=== PATIENT | female | born 1960 | race Caucasian/White ===

== ENCOUNTER 2025-02-03 19:37 | Emergency (ER) | payer MEDICARE, OTHER, SELFPAY ==
[2025-02-03 19:38] VITALS: BP 134/88; PULSE 90; RESP 18; TEMP 36.5; O2SAT 98
--- NOTE | 2025-02-03 19:45 | DI.CT_ITS ---
Exam(s) CT HEAD WO EXAM: CT HEAD WO CLINICAL HISTORY: headache, pain behind eye since head injury in Apr. TECHNIQUE: Imaging Protocol: Axial computed tomography images with coronal and sagittal reformatted images were created and reviewed COMPARISON: No exams were available for comparison FINDINGS: Ventricles and Extra axial spaces: Normal in size and morphology for the patient's age. Hemorrhage: None. Cerebral parenchyma: No evidence of acute infarct or mass. Midline shift: None. Brainstem/Cerebellum: Normal. Calvarium: Normal. Visualized Paranasal sinuses:Clear. Mastoids: Clear. Soft Tissues: Unremarkable. ORBITS: Unremarkable. PITUITARY: Not enlarged. IMPRESSION: No acute intracranial process. The preliminary [facility] report was reviewed. RADIATION DOSE DELIVERED: 801.03mGy.cm Total DLP DATA REPOSITORY: All CT scans at this facility are submitted to the National Radiology Data Registry (NRDR) Dose Index Registry (DIR) with the [employer] ([employer]). RADIATION OPTIMIZATION: All CT scans at this facility use at least one of these dose optimization techniques: automated exposure control; mA and/or kV adjustment per patient size (includes targeted exams where dose is matched to clinical indication); or iterative reconstruction.
--- NOTE | 2025-02-03 20:01 | W.ED.GENAD ---
Discharge Plan Disposition Patient Disposition: Home Condition: Stable Discharge Details Clinical Impression: Headache, Change in vision Primary Care Provider: Unknown,Unknown ED Provider: Talisha Howard Home Meds and New Rx's Prescriptions: No Action gabapentin 300 mg capsule 300 mg PO QHS trazodone 50 mg tablet 50 mg PO QHS PRN venlafaxine 37.5 mg capsule,extended release 24hr 37.5 mg PO DAILY esomeprazole magnesium 20 mg capsule,delayed release(DR/EC) 20 mg PO BID Discharge Instructions Instructions: Headache, Adult ED Additional Instructions: Please follow-up with your primary care provider back home. As discussed your CAT scan did not show anything acute however this also does not explain the symptoms that you have been experiencing over the past few months. In the meantime if you do get worse or develop any new or concerning symptoms please return to the closest emergency department for reevaluation. HPI General Date/Time Provider Initiated Documentation: 02/03/25 19:38. HPI Narrative: The patient is a 64-year-old female with history of chronic low back pain, fibromyalgia who comes the emergency department for headache, pain behind left eye. The patient reports that she hit her head in November when she was moving the moran of her vehicle. Reports that she hit her forehead. Reports since then she has had headache, pain behind her eye. Reports that she has also had vision changes but she is not entirely sure how long this has been going on and could have been going on even before the head injury. Reports she does not take any blood thinning medication but does take a lot of NSAIDs for her chronic pain. Reports that soon after the injury she thought that she was getting a black eye but instead just developed a lump on her forehead and states that she has been very busy and had in fact recently undergone spinal procedure in [place] where she resides. Reports that a few days ago she noticed an indentation on her left forehead. Thinks that maybe this was from the head injury in November. 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 Reports that she is supposed to wear glasses but does not. Denies any abdominal pain, nausea or vomiting. Denies any chest pain or shortness of breath. Related Data Home Medications ?Medication ?Instructions ?Recorded ?Confirmed esomeprazole magnesium 20 mg 20 mg PO BID 02/03/25 02/03/25 capsule,delayed release gabapentin 300 mg capsule 300 mg PO QHS 02/03/25 02/03/25 trazodone 50 mg tablet 50 mg PO QHS PRN 02/03/25 02/03/25 venlafaxine 37.5 mg 37.5 mg PO DAILY 02/03/25 02/03/25 capsule,extended release 24 hr Allergies Allergy/AdvReac Type Severity Reaction Status Date / Time nitrofurantoin (From Allergy Mild Other (See Verified 02/03/25 19:45 Macrobid) Comment) erythromycin base AdvReac Mild Nausea Verified 02/03/25 19:45 Quinolones AdvReac Mild Other (See Verified 02/03/25 19:45 Comment) General Stated Complaint: Headache JERRY: 3 Review of Systems Narrative: Review of systems are negative except as mentioned. Exam Narrative Exam Narrative: General appearance: The patient is alert, has no immediate need for airway protection and no signs of toxicity. HEENT: Pupils are round, equal and reactive. No extraocular muscle entrapment is noted. No nystagmus is appreciated. No visual field loss identified. Neck: Patient does have midline cervical spine tenderness on exam however she reports this is baseline for her. Respiratory: There are no retractions. Lungs are clear to auscultation. Cardiovascular: Regular in rate and rhythm. Radial pulses are intact and equal. Gastrointestinal: The abdomen is soft and nondistended with normal bowel sounds. Nontender to palpation throughout. Neurological: The patient is alert, awake and oriented x 3. Musculoskeletal strength is intact and equal to bilateral upper and lower extremities. Sensation is intact and equal to bilateral upper and lower extremities. Speech is clear. No facial asymmetry is appreciated. Cranial nerves II to XII motor function are intact and equal. No pronator drift noted. NIH stroke scale score is 0 at 2000. No truncal ataxia is noted. Gait is normal. Face: Along the left forehead the patient has indentation that is linear in shape but without overlying skin break. Course Vital Signs Vital signs: Vital Signs Temperature 36.5 C 02/03/25 19:38 Pulse 90 02/03/25 19:38 Respiratory Rate 18 02/03/25 19:38 Blood Pressure 134/88 02/03/25 19:38 Pulse Oximetry 98 02/03/25 19:38 Temperature 36.5 C 02/03/25 19:38 Temperature Source Oral 02/03/25 19:38 Pulse 90 02/03/25 19:38 Respiratory Rate 18 02/03/25 19:38 Blood Pressure 134/88 02/03/25 19:38 Pulse Oximetry 98 02/03/25 19:38 Oxygen Delivery Method Room Air 02/03/25 19:38 Oxygen Flow Rate 0 02/03/25 19:38 Pain Level 1 02/03/25 19:38 Medical Decision Making The patient has no focal deficit on exam. The patient has been symptomatic since November therefore acute angle closure glaucoma and acute intracranial bleed is less likely. I did order CT head regardless given patient's concern. She has no recent eye pain or trauma and no visual field loss or eye floaters so corneal and retinal pathologies are also less likely. CT is resulted and she is found to have no acute finding. I have updated the patient of CT scan result and of plan for discharge. 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 Imaging Data Radiologic Study: Imaging: CT Scan (CT head without) Radiologist's impression: No acute intracranial hemorrhage, mass effect or midline shift PFSH All Active Problems (Updated 02/03/25 @ 21:58 by Talisha Howard DO) Change in vision (Acute) Headache (Acute) Social History Smoking/Tobacco Use Status: Never Smoking risk assessment performed?: Yes Alcohol Intake: current Alcohol Intake frequency: a few times a month Drug use: Never Substance use type: does not use Housing: house Do you feel safe at home: Yes Do you feel safe in your relationship?: Yes
--- NOTE | 2025-02-03 21:48 | DI.[facility]_ITS ---
PROCEDURE INFORMATION: Exam: CT Head Without Contrast Exam date and time: 02/03/2025 8:25 PM Age: 64 years old Clinical indication: Headache, pain behind eye since head injury in apr TECHNIQUE: Imaging protocol: Computed tomography of the head without contrast. COMPARISON: No relevant prior studies available. FINDINGS: Brain: There is no acute intracranial hemorrhage, mass effect or midline shift. There is no large acute territorial cerebral infarct. Cerebral ventricles: No ventriculomegaly. Paranasal sinuses: Visualized sinuses are unremarkable. No fluid levels. Mastoid air cells: Visualized mastoid air cells are well aerated. Bones: Unremarkable. No acute fracture. Soft tissues: Unremarkable. IMPRESSION: No acute intracranial hemorrhage, mass effect or midline shift. Dictated and Authenticated by: Lin Altman MD. Orderin Lee Woodall MD
== END 2025-02-03 22:02 | disposition home or self-care (01) ==
PROVIDERS: Emergency Provider Emergency Medicine
DX: R51.9 Headache, unspecified (principal); H57.12 Ocular pain, left eye; H53.8 Other visual disturbances
CPT/HCPCS: 99283; 99284; 70450